=== PATIENT | male | born 1970 | race Two or more races ===

== ENCOUNTER 2022-12-21 21:58 | Emergency (ER) | payer OTHER ==
[~2022-12-21] VITALS: Ht 172.7 cm; Wt 119.3 kg
[2022-12-21] MEDS ORDERED: LORAZEPAM2 MG PO (22:26)
[2022-12-21] MEDS ORDERED: BUPROPION XL150 MG PO (22:26)
[2022-12-21] MEDS ORDERED: SYNJARDY 12.5-1 EACH PO (22:27)
[2022-12-21] MEDS ORDERED: RISPERIDONE1 MG PO (22:27)
[2022-12-21] MEDS ORDERED: AVAPRO150 MG PO (22:27)
[2022-12-21] MEDS ORDERED: OMEPRAZOLE20 MG PO (22:27)
[2022-12-21] MEDS ORDERED: AMLODIPINE BESYL5 MG PO (22:27)
[2022-12-21 23:49] LABS: HEMATOCRIT 49.2 % (39.0-48.0); HEMOGLOBIN 16.4 g/dL (13-16.00); MEAN CELL VOLUME 90.7 fL (80.0-100.00); MEAN CORPUSCULAR HEMOGLOBIN 30.3 pg (27.00-32.0); MEAN CORPUSCULAR HGB CONC 33.4 g/dl (32.0-36.0); PLATELET COUNT 245 K/uL (150-450); RED BLOOD COUNT 5.42 M/uL (4.00-6.00)
[2022-12-22 00:16] LABS: URINE APPEARANCE Clear; URINE BILIRRUBIN Negative (NEGATIVE); URINE BLOOD Negative; URINE COLOR Yellow; URINE LEUKOCYTE Negative; URINE NITRATE Negative; URINE PROTEIN Negative (NEGATIVE); URINE UROBILINOGEN 0.2 E.U./dl
[2022-12-22 00:19] LABS: URINE BACTERIA 7.5 uL (0.0-1933); URINE WBC 3.3 uL (0.0-23.2)
[2022-12-22 00:20] LABS: URINE GLUCOSE >=1000 MG/DL (NEGATIVE); URINE RBC 1.5 uL (0.0-20.8)
[2022-12-22] MEDS ORDERED: TAMS0.4C PO (05:57)
[2022-12-22] MEDS ORDERED: KETO10TA2 PO (05:57)
== END 2022-12-22 06:04 ==
LOC: ER 21:59
PROVIDERS: Emergency Medicine
DX: R10.31 Right lower quadrant pain (principal); K76.0 Fatty (change of) liver, not elsewhere classified